=== PATIENT | female | born 1955 | race Hispanic/Latino ===

== ENCOUNTER → 2023-11-12 | Outpatient (CLI) | payer OTHER ==
[~2023-11-12] MED LIST: IOHEXOL-350 75 ML VIAL IV ONE
== END | disposition home or self-care (01) ==
LOC: RAH 09:27
PROVIDERS: ATTEND Student in an Organized Health Care Education/Training Program
DX: I65.23 Occlusion and stenosis of bilateral carotid arteries (principal); I70.90 Unspecified atherosclerosis; M47.812 Spondylosis without myelopathy or radiculopathy, cervical region
CPT/HCPCS: 70498; Q9967

== ENCOUNTER → 2024-01-06 | Outpatient (CLI) | payer OTHER ==
[~2024-01-06] MED LIST changes: +IOHEXOL 350 MG/ML 100ML INFUS..BTL IV ONE; -IOHEXOL-350 75 ML VIAL IV ONE; +METOPROLOL TARTRATE 1 MG/ML 5ML VIAL IV ONE
== END | disposition home or self-care (01) ==
LOC: RAH 08:44
PROVIDERS: ATTEND Student in an Organized Health Care Education/Training Program
DX: R07.9 Chest pain, unspecified (principal)
CPT/HCPCS: 75574; J3490; Q9967

== ENCOUNTER → 2024-01-12 | Outpatient (CLI) | payer OTHER | END | disposition home or self-care (01) | LOC: RAH 09:10 | PROVIDERS: ATTEND Family Medicine | DX: Z12.31 Encounter for screening mammogram for malignant neoplasm of breast (principal) | CPT/HCPCS: 77067 ==

== ENCOUNTER → 2024-01-19 | Outpatient (CLI) | payer OTHER | END | disposition home or self-care (01) | LOC: SHCH 10:28 | PROVIDERS: ATTEND Student in an Organized Health Care Education/Training Program | DX: I11.9 Hypertensive heart disease without heart failure (principal); R07.9 Chest pain, unspecified; E78.5 Hyperlipidemia, unspecified | CPT/HCPCS: 93306 ==

== ENCOUNTER → 2024-03-28 | Outpatient (CLI) | payer OTHER | END | disposition home or self-care (01) | LOC: SHCH 11:25 | PROVIDERS: ATTEND Student in an Organized Health Care Education/Training Program | DX: I65.23 Occlusion and stenosis of bilateral carotid arteries (principal) | CPT/HCPCS: 93880 ==

== ENCOUNTER 2024-10-12 10:00 | Inpatient (IN) | payer OTHER ==
[~2024-10-12] VITALS: Ht 154.9 cm; Wt 62.8 kg
[~2024-10-12 10:00] MED LIST changes: +CLOP75TA32 PO; +EMPA1TAB9 PO; +GABA-529 PO; -IOHEXOL 350 MG/ML 100ML INFUS..BTL IV ONE; +LOSA50TA64 PO; -METOPROLOL TARTRATE 1 MG/ML 5ML VIAL IV ONE
[2024-10-12 11:00] VITALS: BP 163/79; PULSE 76; RESP 17; TEMP 97.3
[2024-10-12 11:09] LABS: BASOPHILS # (AUTO) 0.03 K/uL (0.00-0.20); BASOPHILS % (AUTO) 0.5 % (0.0-5.0); EOSINOPHILS # (AUTO) 0.21 K/uL (0.00-0.70); EOSINOPHILS % (AUTO) 3.3 % (0.0-8.0); HEMATOCRIT 44.4 % (36-48); IMMATURE GRANULOCYTE ABSOLUTE 0.01 K/uL (0-1); LYMPHOCYTES # (AUTO) 2.3 K/uL (1.0-4.8); LYMPHOCYTES % (AUTO) 35.4 % (21.0-51.0); MEAN CORPUSCULAR HEMOGLOBIN 26.9 pg (27.0-33.0); MEAN CORPUSCULAR HGB CONC 32.2 g/dL (32.0-36.0); MEAN CORPUSCULAR VOLUME 83.6 fL (79-99); MONOCYTES # (AUTO) 0.5 K/uL (0.1-1.0); NEUTROPHILS # (AUTO) 3.4 K/uL (1.8-7.7); NEUTROPHILS % (AUTO) 52.6 % (40.0-77.0); PLATELET COUNT (AUTO) 232 K/uL (130-400); RED BLOOD CELL COUNT(AUTO) 5.31 MIL/uL (4.00-5.50); RED CELL DISTRIBUTION WIDTH 15.4 % (11.0-15.5); WHITE BLOOD COUNT (AUTO) 6.4 K/uL (4.8-10.8)
[2024-10-12 11:16] LABS: CREATININE 0.7 mg/dL (0.5-1.0); POTASSIUM 3.6 mmol/L (3.5-5.1)
--- NOTE | 2024-10-12 11:27 | EKG ---
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
[2024-10-12 11:37] LABS: APPEARANCE,URINE CLEAR (CLEAR); BILIRUBIN,URINE NEGATIVE (NEGATIVE); COLOR,URINE LIGHT-YELLOW (YELLOW); GLUCOSE, URINE (UA) >=1000 mg/dL (NEGATIVE); KETONES,URINE NEGATIVE (NEGATIVE); LEUKOCYTE ESTERASE ,URINE NEGATIVE Leu/uL (NEGATIVE); NITRATE,URINE NEGATIVE (NEGATIVE); OCCULT BLOOD,URINE NEGATIVE (NEGATIVE); PROTEIN,URINE NEGATIVE (NEGATIVE); UROBILINOGEN,URINE 0.2 mg/dL (0.2-1.0)
[2024-10-12 11:38] LABS: ADD UA MICROSCOPIC YES
[2024-10-12 11:39] LABS: MUCUS,URINE RARE LPF (None Seen); RBC,URINE 0-1 /HPF (0-1); WBC,URINE 0-1 /HPF (0-1)
[2024-10-12 11:40] LABS: INR 1.01 (0.85-1.15); PROTHROMBIN TIME 11.3 SEC (9.6-11.6)
[2024-10-12] MEDS ORDERED: ISOS5TAB5 PO (11:40)
[2024-10-12] MEDS ORDERED: AMLO-258 PO (11:40)
[2024-10-12] MEDS ORDERED: INSU3INS3 SQ (11:40)
[2024-10-12] MEDS ORDERED: ATOR40TA71 PO (11:40)
[2024-10-12 11:41] LABS: PARTIAL THROMBOPLASTIN TIME 25.4 SEC (26.3-35.5)
--- NOTE | 2024-10-12 12:21 | HMCIMG ---
CHEST 1VW REASON: PRE OP COMPARISON: 06/28/2024 FINDINGS: Single view of the chest was obtained. Lungs are clear. Heart size is normal. There is no pulmonary vascular congestion. Mediastinum and bony thorax appear unremarkable. There has been a previous median sternotomy. IMPRESSION: 1. No acute finding, no change.
--- NOTE | 2024-10-12 15:36 | NUR ---
RE: LABS REPORTED BMP RESULTS TO BEBA AG NP. RECEIVED ORDERS TO REPEAT BMP IN AM AND INSTRUCT PATIENT TO HYDRATE TONIGHT (BEFORE MIDNIGHT). CALLED PATIENT AND INSTRUCTED HER TO DRINK PLENTY OF FLUIDS, PATIENT VERBALIZED UNDERSTANDING.
[2024-10-13] VITALS (59 sets, daily range): BP systolic 90–175; BP diastolic 37–89; PULSE 49–76; RESP 11–36; TEMP 96.9–99.5; O2SAT 93–100
[2024-10-13 06:12] LABS: CREATININE 0.7 mg/dL (0.5-1.0); POTASSIUM 3.4 mmol/L (3.5-5.1)
[2024-10-13] MEDS: 0.9%NACL 1000ML 1,000 ML IV ONE (06:33)
[2024-10-13] MEDS ORDERED: ondanSETRON 4MG INJ ONE ×2 (06:55→08:58)
[2024-10-13] MEDS ORDERED: phenylEPHRINE HCL 10 MG/ML 1ML VIAL IV ONE (06:56)
[2024-10-13] MEDS ORDERED: NEOSTIGMINE METHYLSULFATE 1MG/ML IV ONE (06:56)
[2024-10-13] MEDS ORDERED: GLYCOPYRROLATE 0.2 MG/ML 5 ML VIAL ONE (06:56)
[2024-10-13] MEDS ORDERED: rocuRONium bROMide 10MG/1ML 5ML VL ONE (06:56)
[2024-10-13] MEDS ORDERED: MIDAZOLAM HCL 1 MG/ML 2ML VIAL ONE (06:56)
[2024-10-13] MEDS ORDERED: proPOFol 10 MG/ML 20ML VIAL IV ONE (06:56)
[2024-10-13] MEDS ORDERED: FENTanyl CITRate PF 50 MCG/1 ML 2ML VIAL ONE (06:57)
[2024-10-13] MEDS ORDERED: IOHEXOL 350 MG/ML 100ML INFUS..BTL IV ONE (07:06)
[2024-10-13] MEDS ORDERED: HEParin 10,000 UNIT/10ML (1,000 UNIT/ML) VIAL ONE (07:06)
[2024-10-13] MEDS ORDERED: LIDOCAINE HCL 400MG/20ML VIAL ONE (07:06)
[2024-10-13] MEDS ORDERED: SODIUM BICARB 50MEQ 50ML VIAL 50 ML ONE (07:06)
[2024-10-13] MEDS ORDERED: HEParin-NS 1,000 UNIT/500 ML 1,000 ML IV ONE (07:07)
[2024-10-13] MEDS ORDERED: ceFAZolin SODIUM 1 GM VIAL ONE (07:08)
[2024-10-13] MEDS ORDERED: NITROGLYCERIN 50MG VIAL ONE (07:08)
[2024-10-13] MEDS ORDERED: ATROPINE 1MG SYG IVP ONE (08:41)
[2024-10-13] MEDS ORDERED: ondanSETRON 4MG INJ IV PRN (09:00)
[2024-10-13] MEDS ORDERED: NITROGLYCERIN 50MG/D5W 250ML 250 BOT IV PRN (09:00)
[2024-10-13] MEDS ORDERED: TEMAZepam 30 MG CAP PO PRN (09:00)
[2024-10-13] MEDS ORDERED: 0.9%NACL 1000ML 1,000 ML IV SCH (09:00)
[2024-10-13] MEDS ORDERED: isoSORbide DInitRATE 10MG TAB PO PRN (09:30)
--- NOTE | 2024-10-13 09:31 | CCATH ---
PROCEDURES: 1. Selective left carotid artery angiography. 2. Left internal carotid artery stent placement via a left TCAR with concomitant balloon angioplasty. 3. Right common femoral vein access and sheath placement. 4. Left common carotid artery exposure and repair to be dictated separately by Dr. Benedict Cross. INDICATIONS: Severe left carotid artery stenosis. COMPLICATIONS: None. ESTIMATED BLOOD LOSS: Less than 20 mL. CONTRAST: Approximately 35 mL. PRINT LINE SUPERVISOR: Joelle Gary II, MD/Benedict Cross MD ANESTHESIA: General anesthesia with endotracheal intubation. DESCRIPTION OF PROCEDURE: The patient was taken to the cardiac catheterization lab after appropriate operative consents were signed. She was prepped and draped in the usual fashion. After general anesthesia was induced, Dr. Cross was kind enough to proceed with left common carotid artery exposure and access as per his management. He will be dictating that part of the procedure separately. At this point, Dr. Gary took over the procedure. The right common femoral vein was accessed utilizing ultrasound guidance. An 8-Pashto sheath was advanced in retrograde fashion by the modified Seldinger technique. At this point, the right common carotid artery was accessed and angiography was performed in multiple views, identifying a severe stenotic lesion rated at 80%-90% in the proximal left internal carotid artery with a 50% lesion in the left external carotid artery. At this point, the TCAR [employer] sheath was advanced under fluoroscopic guidance with a wire access. Flow reversal was started and the sheath was sutured. After flow reversal was started, the common carotid artery was clamped proximal to the access site. At this point, after full heparinization, a 0.014 wire was advanced, placed in the distal internal carotid artery. We proceeded with placement of an [address] x [address] [employer] stent self-expanding which was deployed in the area of stenosis in internal carotid artery and the common carotid artery. This was postdilated with a 5 mm balloon to 14 atmospheres. Final angiographic results were excellent with no significant stenosis and with patent flow in the internal and external carotid arteries and the intracerebral circulation was normal. At this point, the repair was performed by Dr. Cross of the left common carotid artery. The right common femoral vein access was closed utilizing a Vascade with good hemostasis. The patient tolerated the procedure well and left the cardiac catheterization lab in stable condition. FINAL IMPRESSION: Successful left carotid artery TCAR with an [address] [employer] self-expanding stent, postdilated with a 5 mm balloon to 14 atmospheres with good angiographic results. PLAN: Continue medical management. TID: [id number] RECEIPT: [id number]
[2024-10-13] MEDS: NOREPINEPHRIN 4MG/NS 250ML 250 ML IV PRN (09:46)
--- NOTE | 2024-10-13 10:20 | HP ---
[facility] HISTORY & PHYSICAL Date Patient Seen: Oct 13, 2024 Time of Visit: 10:19 Supervising Physician: Marek Henley MD Primary Care Physician: Dora Boggs MD Outpatient Specialists: Dr Calderon Inpatient Consults: Dr Calderon PROBLEM LIST: Severe left internal carotid stenosis S/P TCAR Hypotension post TCAR in need of Levophed Hyperglycemia in the presence of Type 2 diabetes mellitus, POA Hypernatremia, POA, resolved Glucosuria Essential hypertension Hyperlipidemia Severe CAD status post CABG x3 on 06/23/24 History of right endarterectomy HPI: This is a 69-year-old female with history of type 2 diabetes mellitus, hypertension, hyperlipidemia, severe CAD status post CABG on 06/23/24, previous right carotid endarterectomy, and severe left internal carotid stenosis who presented to [facility] for elective left transcarotid artery revascularization. Patient was seen and evaluated in room 210 in the ICU post left TCAR. Dressing clean dry and intact to left side. No audible stridor or wheezes noted to upper airway. No swelling or hematoma noted. On non-rebreather mask post procedure saturating 100%. Lying flat on hospital bed. She is awake alert and oriented x3 in no apparent distress. Per Cardiology recommendations of blood pressure parameters is systolic blood pressure of 140 -160 mm Hg. Per RN Levophed low- dose has been started in order to meet parameter goals. CBC unremarkable, chemistry with potassium of 3.4 creatinine 0.7 GFR of 93 glucose of 126 mg/dL. Potassium covered per protocol. Chest x-ray with no acut e findings noted. We will continue follow cardiology recommendations. PAST MEDICAL HX: Type 2 diabetes mellitus Hypertension Hyperlipidemia Severe CAD Severe left internal carotid stenosis PAST SURGICAL HX: CABG x3 on 06/23/24 Severe left internal carotid stenosis History of right carotid endarterectomy Myomas section SOCIAL HISTORY: No tobacco, ETOH, or illicit drug use Coded Allergies: No Known Drug Allergies (Unverified Allergy, Unknown, 05/24/24) REVIEW OF SYSTEMS: Const: [no fever, fatigue, or weight changes] Eyes:[ no recent vision problems] ENT: [No congestion, ear pain, or sore throat]+ for postprocedure site pain to left side of neck. C/V: [no chest pain, palpitations or edema] Resp: [No cough, congestion, wheezing , or Shortness of breath] GI: [No abdominal pain, nausea, vomiting, constipation, or diarrhea] : [No incontinence of or dyuria] M/S: [No joint or pain swelling] Skin: [No rash] Neuro: [no headache, focal numbness, or weakness, dizziness or seizures] Psych: [no depression or anxiety] Heme: [no abnormal bruising or bleeding] Lymph: [no swollen glands] PHYSICAL EXAM: GENERAL: alert, weak, awake oriented x 3 HEENT: EOMI, Sclera non icteric, moist mucosa NECK: Supple, no JVD, trachea midline Dressing to left side of neck clean dry and intact. LUNGS: Clear breath sounds bilaterally. No wheezes HEART: Regular rate and rhythm. Normal S1 and S2, without murmurs ABD: Abdomen soft, nontender. Bowel sounds present EXT: No clubbing cyanosis or edema NEURO: Alert and oriented to person, follows commands Vital Signs (last 8hr) Date Time Temp Pulse Resp B/P (MAP) Pulse Ox O2 Delivery O2 Flow Rate FiO2 10/13/24 09:46 89/41 10/13/24 09:45 64 14 106/41 (62) 100 10/13/24 09:30 64 14 90/47 (61) 100 10/13/24 05:45 97.0 69 16 155/72 99 Room Air LABS: Hematology Labs: Test 10/12/24 10:46 Range/Units White Blood Count 6.4 4.8-10.8 K/uL Red Blood Count 5.31 4.00-5.50 MIL/uL Hemoglobin 14.3 12.0-16.0 g/dL Hematocrit 44.4 36-48 % Mean Corpuscular Volume 83.6 79-99 fL Mean Corpuscular Hemoglobin 26.9 L 27.0-33.0 pg Mean Corpuscular Hemoglobin Concent 32.2 32.0-36.0 g/dL Red Cell Distribution Width 15.4 11.0-15.5 % Platelet Count 232 130-400 K/uL Mean Platelet Volume 10.9 H 7.5-10.5 fL Immature Granulocyte % (Auto) 0.2 0-1 % Neutrophils (%) (Auto) 52.6 40.0-77.0 % Lymphocytes (%) (Auto) 35.4 21.0-51.0 % Monocytes (%) (Auto) 8.0 3.0-13.0 % Eosinophils (%) (Auto) 3.3 0.0-8.0 % Basophils (%) (Auto) 0.5 0.0-5.0 % Neutrophils # (Auto) 3.4 1.8-7.7 K/uL Lymphocytes # (Auto) 2.3 1.0-4.8 K/uL Monocytes # (Auto) 0.5 0.1-1.0 K/uL Eosinophils # (Auto) 0.21 0.00-0.70 K/uL Basophils # (Auto) 0.03 0.00-0.20 K/uL Absolute Immature Granulocyte (auto 0.01 0-1 K/uL Nucleated Red Blood Cells 0.0 0.0-0.19 % Chemistry Labs: Test 10/13/24 05:58 10/13/24 05:48 Range/Units Sodium Level 145 136-145 mmol/L Potassium Level 3.4 L 3.5-5.1 mmol/L Chloride Level 107 101-111 mmol/L Carbon Dioxide Level 29 21-32 mmol/L Blood Urea Nitrogen 17 7-18 mg/dL Creatinine 0.7 0.5-1.0 mg/dL Glomerular Filtration Rate Calc 93 >90 mL/min Random Glucose 126 H 70-105 mg/dL Total Calcium 8.7 8.5-10.1 mg/dL Whole Blood Glucose 129 H 70-110 MG/DL Coagulation Labs: Test 10/12/24 10:46 Range/Units Prothrombin Time 11.3 9.6-11.6 SEC Prothromb Time International Ratio 1.01 0.85-1.15 Activated Partial Thromboplast Time 25.4 L 26.3-35.5 SEC DIAGNOSTICS / RADIOLOGY RESULTS: IMAGING REPORT Signed PATIENT: ANUSHA BAIG MR#: [id number] : 1955 SEX: F AGE: 69 LOCATION: ORDER 1050 STATUS: PRE IN REPORT#: [id number] SERVICE 1031 REASON: PRE OP ORDERING PHYSICIAN: Dayday CALDERON II, MD PROCEDURE: CXR1VW - CHEST 1VW CHEST 1VW REASON: PRE OP COMPARISON: 06/28/2024 FINDINGS: Single view of the chest was obtained. Lungs are clear. Heart size is normal. There is no pulmonary vascular congestion. Mediastinum and bony thorax appear unremarkable. There has been a previous median sternotomy. IMPRESSION: 1. No acute finding, no change. DICTATED BY: YOKASTA CHAMPAGNE MD DATE: 10/12/24 1218 ELECTRONICALLY SIGNED BY: YOKASTA CHAMPAGNE MD DATE: 10/12/24 1221 PLAN Maintain systolic blood pressure between 140-160 per Cardiology recommendations Levophed as needed to maintain parameters. Follow cardiology recommendations Continuous Cardiac telemetry monitoring Monitor dressing to right side of the neck and neck for any hematoma or bruising Monitor respiratory status closely Monitor neurological status closely DVT and GI prophylaxis DAPT per Cardiology recommendation Statin Reconcile patient's home medication NEURO: Minimize central acting medications as possible. Fall Precautions. Well lighted room through the day and minimize interruptions through the night to prevent acute delirium. PULMONARY: Supplemental 02 as needed Titrate Fio2 to keep Spo2 > or = 90% DuoNebs and CPT as needed IS hourly while awake for pulmonary hygiene Out of bed to chair as tolerated VAP Bundle may wean from NRB once more awake from sedation post procedure CARDIOVASCULAR: Follow hemodynamics. Titrate vasopressor to keep MAP >65 or systolic blood pressure >95mmHg tele monitoring. VS per ICU protocol DRIPS: Levophed LINES: PIV GI & NUTRITION: Continue nutritional support Aspirations precautions Prokinetic agents and laxatives as needed KIDNEYS & ELECTROLYTES: Strict monitoring of intake and output Daily weights Avoid nephrotoxic agents Monitor electrolytes and replace as needed Goal urine output of 30mL/hr or 0.5mL/kg/hr Urine output: [ ] Fluid Balance: [ ] ENDOCRINE: Maintain blood glucose between 100-180 at all times. Insulin sliding scale for blood glucose management INFECTIOUS DISEASE: Trend temperature. Godinez-culture if febrile. Micro: [ ] Antibiotics: [ ] HEMATOLOGY & COAGULATION: Monitor H&H. Keep Hgb > 7 Transfuse 1 unit of PRBC for Hgb < 7 Transfuse 1 pack of platelets of platelets < 20, 000 Watch for any signs and symptoms of bleeding SKIN: Pressure ulcer prevention per facility protocol Rehab: PT/OT Prophylaxis: GI: Protonix DVT: SCD Code Status: Full Resuscitation Disposition: ICU Other: Total patient care time exceeds 35 minutes excluding all procedures. Case was discussed and seen with my supervising physician. The above plan was formulated and agreed upon. GENA MITCHELL [facility] Oct 13, 2024 10:20
[2024-10-13] MEDS ORDERED: LACTULOSE 20 GM/30 ML UDCUP PO PRN (10:30)
[2024-10-13] MEDS ORDERED: PoTASSium chloRIDE 20MEQ/100ML 100 ML IV PRN (10:30)
[2024-10-13] MEDS: ASPIRIN 81MG CHEW TAB PO SCH (10:32)
[2024-10-13] MEDS: acetaMINOPHEN 325 MG TAB PO PRN (10:33)
--- NOTE | 2024-10-13 10:42 | OP ---
DATE OF PROCEDURE: 10/13/2024 PREOPERATIVE DIAGNOSIS: Left carotid artery stenosis. POSTOPERATIVE DIAGNOSIS: Left carotid artery stenosis. PROCEDURE PERFORMED: Left transcarotid arterial revascularization. SURGEON: Benedict Cross MD. MILL TENDER WARM UP: Joelle Gary II MD DESCRIPTION OF PROCEDURE: Following anesthesia induction without any complication and progression of the operative field, a 3-cm incision was made over the left clavicle. The sternocleidomastoid muscle was retracted laterally. The carotid sheath was identified and opened with sharp scissors. The carotid artery and vein was identified. Proximal control was obtained. Subsequently, heparin dose was given to the patient and Dr. Gary took over the case and did a transcarotid revascularization portion. For more details, please refer to his separately dictated procedure report. After the procedure was concluded successfully and the stent was deployed, we then took over the case again and removed the sheath and repaired the common carotid artery with a 6-0 Prolene suture. At the end, there was good hemostasis. We closed the wound in layers with 2-0 Vicryl and 4-0 Monocryl suture. I was present throughout the entire operation. The patient tolerated the operation well and transferred to the postanesthesia care unit in stable condition. TID: [id number] RECEIPT: [id number]
[2024-10-13] MEDS: hydroMORPHone 0.5 MG SYG (0.5MG/0.5ML) IVP PRN (11:46)
[2024-10-13] MEDS: ceFAZolin SODIUM 1 GM VIAL IVPB SCH (15:25)
[2024-10-13] MEDS: PoTASSium chl 10% ELIXIR 20MEQ 20 MEQ/15 ML UDCUP PO PRN (16:47)
[2024-10-13] MEDS: doCUSate SODIUM 100 MG CAP PO SCH (20:29)
[2024-10-13] MEDS: atorVAStatin 40 MG TABLET PO SCH (20:29)
[2024-10-13] MEDS: GABApentin 100 MG CAPSULE PO SCH (20:29)
[2024-10-13] MEDS: cloPIDOgrel 75MG TAB PO SCH (20:29)
[2024-10-13] MEDS: PANTOPrazole 40 MG/VIAL IVP SCH (20:32)
[2024-10-13] MEDS: METFORMIN HCL PO SCH (20:50)
[2024-10-13] MEDS: EMPAGLIFLOZIN PO SCH (20:50)
[2024-10-13] MEDS: LoSARTan 50 MG TABLET PO SCH (20:50)
[2024-10-13] MEDS: amLODIPine 5 MG TAB PO SCH (20:50)
[2024-10-13] MEDS: INSULIN GLARgine 100 UNITS/ML 10 ML VIAL SQ SCH (20:51)
[2024-10-14] VITALS (103 sets, daily range): BP systolic 79–194; BP diastolic 22–102; PULSE 47–83; RESP 9–34; TEMP 97.8–99.3; O2SAT 94–96
[2024-10-14 03:35] LABS: HEMATOCRIT 37.4 % (36-48); MEAN CORPUSCULAR HEMOGLOBIN 27.2 pg (27.0-33.0); MEAN CORPUSCULAR HGB CONC 32.9 g/dL (32.0-36.0); MEAN CORPUSCULAR VOLUME 82.6 fL (79-99); RED BLOOD CELL COUNT(AUTO) 4.53 MIL/uL (4.00-5.50); RED CELL DISTRIBUTION WIDTH 15.3 % (11.0-15.5); WHITE BLOOD COUNT (AUTO) 9.8 K/uL (4.8-10.8)
[2024-10-14 03:50] LABS: CREATININE 0.7 mg/dL (0.5-1.0); MAGNESIUM 1.7 mg/dL (1.80-2.40); PHOSPHORUS 3.4 mg/dL (2.5-4.9); POTASSIUM 3.3 mmol/L (3.5-5.1)
[2024-10-14] MEDS: PoTASSium chloRIDE 20MEQ ER 20 MEQ ERTAB PO PRN (05:21)
[2024-10-14] MEDS: MAGNESIUM 2GM PREMIX 50ML 50 ML IV PRN (05:22)
--- NOTE | 2024-10-14 09:00 | PN ---
This is a 69-year-old female with a history of coronary artery disease status post CABG x3 06/23/2024, history of right carotid endarterectomy, type 2 diabetes mellitus and hyperlipidemia. She was admitted 10/13/2024 for elective TCAR of the left carotid artery. She is currently in sinus rhythm with heart rates in the 60s. Most recent blood pressure is 158/65. White blood count 9.8, hemoglobin 12.3, hematocrit 37.4, platelets 219, creatinine 0.7, potassium 3.3, magnesium 1.70. She offers no new cardiac complaints this morning. On exam, she is in no acute distress, regular rate and rhythm, lungs are clear to auscultation bilaterally, no lower extremity edema is noted. There was no evidence of hematoma, ecchymosis or erythema noted to left carotid incision. Assessment: 1. Left internal carotid artery stenosis status post left TCAR 10/13/2024. 2. CAD status post CABG x3 06/23/2024. 3. History of right CEA. 4. Type 2 diabetes mellitus. 5. Hyperlipidemia. 6. Hypertension. Plan: 1. She is status post left TCAR 10/13/2024. She is currently on IV norepinephrine. Her most recent blood pressure is 158/65. We will wean norepinephrine. 2. Continue aspirin 81 mg once daily, clopidogrel 75 mg once daily and atorvastatin 40 mg once daily. 3. Continue amlodipine 10 mg once daily and losartan 50 mg once daily for management of blood pressure. 4. We will follow the patient. Vitals/Labs Vital Signs Date Time Temp Pulse Resp B/P (MAP) Pulse Ox O2 Delivery O2 Flow Rate FiO2 10/14/24 08:00 96 Room Air* 0 21 10/14/24 07:30 55 17 128/37 (67) 10/14/24 07:15 97.9 Laboratory Tests 10/14/24 03:19 MOISES MADRIGAL Oct 14, 2024 09:00
[2024-10-14] MEDS: miDODRine HCL 5 MG TABLET PO SCH (10:28)
--- NOTE | 2024-10-14 10:50 | PN ---
[facility] PROGRESS NOTE Date Patient Seen: Oct 14, 2024 Time of Visit: 10:50 Supervising Physician: Fred Ivory MD Primary Care Physician: Dora Boggs MD Outpatient Specialists: Dr Gary Inpatient Consults: Dr Gary PROBLEM LIST: Severe left internal carotid stenosis S/P TCAR Hypotension post TCAR in need of Levophed Hyperglycemia in the presence of Type 2 diabetes mellitus, POA Hypernatremia, POA, resolved Glucosuria Essential hypertension Hyperlipidemia Severe CAD status post CABG x3 on 06/23/24 History of right endarterectomy INTERVAL HISTORY: 10/14/24-patient is awake alert and oriented x3. Hemodynamically improving facility on Levophed at 0.02 micrograms/kilogram per minute. We will start midodrine 10 mg 3 times a day p.r.n. for systolic blood pressure less than 100. Wean off Levophed. Potassium was 3.3 covered per protocol magnesium is 1.7 covered per protocol. Glucose 105 mg mg/dL. She denies any chest pain, palpitations or shortness for breath. She denies any headache dizziness or focal weakness. No major overnight events reported per RN. No stridor auscultated on upper airway. Bilateral lungs sound clear. We will continue to follow here in the ICU and follow with the Cardiology recommendation. REVIEW OF SYSTEMS: Const: [no fever, fatigue, or weight changes] Eyes:[ no recent vision problems] ENT: [No congestion, ear pain, or sore throat] C/V: [no chest pain, palpitations or edema] Resp: [No cough, congestion, wheezing , or Shortness of breath] GI: [No abdominal pain, nausea, vomiting, constipation, or diarrhea] : [No incontinence of or dyuria] M/S: [No joint or pain swelling] Skin: [No rash] Neuro: [no headache, focal numbness, or weakness, dizziness or seizures] Psych: [no depression or anxiety] Heme: [no abnormal bruising or bleeding] Lymph: [no swollen glands] PHYSICAL EXAM: GENERAL: alert, weak, awake oriented x 3 HEENT: EOMI, Sclera non icteric, moist mucosa NECK: Supple, no JVD, trachea midline Dressing to left side of neck clean dry and intact. No hematoma no stridor auscultated LUNGS: Clear breath sounds bilaterally. No wheezes HEART: Regular rate and rhythm. Normal S1 and S2, without murmurs ABD: Abdomen soft, nontender. Bowel sounds present EXT: No clubbing cyanosis or edema NEURO: Alert and oriented to person, follows commands Vital Signs (last 8hr) Date Time Temp Pulse Resp B/P (MAP) Pulse Ox O2 Delivery O2 Flow Rate FiO2 10/14/24 09:16 74 21 154/61 (92) 93 142/45 (77) 10/14/24 09:15 76 22 144/44 (77) 90 10/14/24 09:00 74 22 132/40 (70) 91 10/14/24 08:46 79 22 124/68 (86) 92 122/40 (67) 10/14/24 08:45 78 23 124/40 (68) 91 10/14/24 08:30 78 23 128/51 (76) 92 10/14/24 08:18 70 21 98/45 (62) 94 104/47 (66) 10/14/24 08:15 78 21 114/49 (70) 93 10/14/24 08:00 96 Room Air* 0 21 10/14/24 08:00 97.9 70 18 111/51 (71) 94 10/14/24 07:46 72 20 158/65 (96) 92 143/46 (78) 10/14/24 07:45 72 20 149/48 (81) 95 10/14/24 07:30 55 17 128/37 (67) 95 10/14/24 07:16 61 21 143/47 (79) 93 132/37 (68) 10/14/24 07:15 97.9 69 20 150/46 (80) 93 10/14/24 07:00 59 20 120/38 (65) 92 85/22 (43) 10/14/24 06:45 59 14 97/23 (47) 94 10/14/24 06:31 137/62 10/14/24 06:30 68 20 167/69 (101) 94 159/46 (83) 10/14/24 06:15 53 16 134/33 (66) 95 10/14/24 06:00 48 20 137/62 (87) 95 139/41 (73) 10/14/24 05:45 59 19 116/40 (65) 95 10/14/24 05:30 59 26 106/57 (73) 92 97/32 (53) 10/14/24 05:17 58 18 107/41 (63) 93 79/31 (47) 10/14/24 05:15 63 19 86/32 (50) 92 10/14/24 05:00 99.3 56 21 138/50 (79) 91 146/46 (79) 10/14/24 04:45 52 20 130/41 (70) 95 10/14/24 04:30 53 19 148/49 (82) 93 144/46 (78) 10/14/24 04:15 53 19 142/45 (77) 93 10/14/24 04:00 53 20 134/49 (77) 93 131/42 (71) 10/14/24 03:45 53 20 134/42 (72) 94 10/14/24 03:30 52 13 147/46 (79) 95 129/41 (70) 10/14/24 03:15 53 20 131/41 (71) 92 10/14/24 03:00 62 20 145/57 (86) 94 149/50 (83) 10/14/24 03:00 94 Room Air* 0 21 LABS: Hematology Labs: Test 10/14/24 03:19 Range/Units White Blood Count 9.8 4.8-10.8 K/uL Red Blood Count 4.53 4.00-5.50 MIL/uL Hemoglobin 12.3 12.0-16.0 g/dL Hematocrit 37.4 36-48 % Mean Corpuscular Volume 82.6 79-99 fL Mean Corpuscular Hemoglobin 27.2 27.0-33.0 pg Mean Corpuscular Hemoglobin Concent 32.9 32.0-36.0 g/dL Red Cell Distribution Width 15.3 11.0-15.5 % Platelet Count 219 130-400 K/uL Mean Platelet Volume 10.8 H 7.5-10.5 fL Nucleated Red Blood Cells 0.0 0.0-0.19 % Chemistry Labs: Test 10/14/24 06:28 10/14/24 03:19 Range/Units Whole Blood Glucose 105 70-110 MG/DL Sodium Level 144 136-145 mmol/L Potassium Level 3.3 L 3.5-5.1 mmol/L Chloride Level 110 101-111 mmol/L Carbon Dioxide Level 23 21-32 mmol/L Blood Urea Nitrogen 15 7-18 mg/dL Creatinine 0.7 0.5-1.0 mg/dL Glomerular Filtration Rate Calc 93 >90 mL/min Random Glucose 122 H 70-105 mg/dL Total Calcium 8.0 L 8.5-10.1 mg/dL Phosphorus Level 3.4 2.5-4.9 mg/dL Magnesium Level 1.70 L 1.80-2.40 mg/dL DIAGNOSTICS / RADIOLOGY RESULTS: [ ] PLAN Wean levophed midodrine prn for sbp < 100 Follow cardiology recommendations Continuous Cardiac telemetry monitoring Monitor dressing to right side of the neck and neck for any hematoma or bruising Monitor respiratory status closely Monitor neurological status closely DVT and GI prophylaxis DAPT per Cardiology recommendation Statin NEURO: Minimize central acting medications as possible. Maintain fall precautions, adequate lighting during the day PULMONARY: Supplemental 02 as needed. Maintain aspiration precautions at all times CARDIOVASCULAR: Follow hemodynamics. Vital signs per facility protocol GI & NUTRITION: Continue with nutritional support. Continue stool softeners and laxatives as needed. KIDNEYS & ELECTROLYTES: Strict monitoring of intake, output and overall fluid balance. Avoid nephrotoxic medications to the extent possible. Medications to be dosed according to renal function. Monitor electrolytes and replace as needed ENDOCRINE: Maintain blood glucose between 100-180 at all times. Hypoglycemia protocol in place INFECTIOUS DISEASE: Trend temperature, WBC and procalcitonin level Follow cultures, deescalate antibiotics as soon as possible. Panculture if new onset fever ONCOLOGY/HEMATOLOGY/COAGULATION: Monitor for s/s of bleeding Monitor hemoglobin, coagulation studies as needed SKIN: Pressure ulcer prevention per facility protocol Specialty mattress ORTHO/REHAB: Continue PT/OT Prophylaxis: Continue GI and DVT prophylaxis Code Status: Full Resuscitation Disposition: TBD Other: Total patient care time exceeds 35 minutes excluding all procedures. GENA MITCHELL Oct 14, 2024 10:50
--- NOTE | 2024-10-14 12:30 | NUR ---
NURSING NOTES PT IS POST TCAR X 24HRS, OK TO WEAN VASOPRESSOR PER GENA LEAD CLINICAL RESEARCH COORDINATOR, PT STARTED ON MIDODRINE 10MG TID, PT DENIES PAIN.
--- NOTE | 2024-10-14 17:20 | NUR ---
INITIAL/DCP HOME Met w pt this afternoon to discuss dcp. Pt admitted for elective TCAR. EC is dtr Ashley Perry [phone]. PCP [address] Flakita John. Preferred pharmacy is [facility] in [place]. Prior to admission pt was living at home w her spouse. She is normally independent w ambulation and ADLs. She owns a cane, rollator, nebulizer and sh chair. Discharge goal is to return home. Addendum: 10/14/24 at 1724 by LATOSHA CARRILLO CM Amended: Links added.
[2024-10-14] MEDS ORDERED: SODIUM BICARB 50MEQ 50ML VIAL IV ONE (23:45)
[2024-10-15] VITALS (11 sets, daily range): BP systolic 95–148; BP diastolic 32–59; PULSE 50–64; RESP 18–26; TEMP 98.5; O2SAT 92–97
[2024-10-15 05:10] LABS: BASOPHILS # (AUTO) 0.02 K/uL (0.00-0.20); BASOPHILS % (AUTO) 0.3 % (0.0-5.0); EOSINOPHILS # (AUTO) 0.18 K/uL (0.00-0.70); EOSINOPHILS % (AUTO) 2.5 % (0.0-8.0); HEMATOCRIT 34.9 % (36-48); IMMATURE GRANULOCYTE ABSOLUTE 0.01 K/uL (0-1); LYMPHOCYTES # (AUTO) 2.3 K/uL (1.0-4.8); LYMPHOCYTES % (AUTO) 31.9 % (21.0-51.0); MEAN CORPUSCULAR HEMOGLOBIN 27.2 pg (27.0-33.0); MEAN CORPUSCULAR HGB CONC 33.5 g/dL (32.0-36.0); MEAN CORPUSCULAR VOLUME 81.2 fL (79-99); MONOCYTES # (AUTO) 0.7 K/uL (0.1-1.0); MONOCYTES % (AUTO) 10.1 % (3.0-13.0); NEUTROPHILS % (AUTO) 55.1 % (40.0-77.0); PLATELET COUNT (AUTO) 181 K/uL (130-400); RED CELL DISTRIBUTION WIDTH 15.7 % (11.0-15.5); WHITE BLOOD COUNT (AUTO) 7.3 K/uL (4.8-10.8)
[2024-10-15 05:30] LABS: ALBUMIN 2.5 g/dL (3.5-5.0); BILIRUBIN,TOTAL 0.5 mg/dL (0.2-1.0); CREATININE 0.7 mg/dL (0.5-1.0); MAGNESIUM 2.1 mg/dL (1.80-2.40); POTASSIUM 3.7 mmol/L (3.5-5.1); TOTAL PROTEIN, SERUM 6.1 g/dL (6.0-8.3)
--- NOTE | 2024-10-15 09:45 | PN ---
[facility] PROGRESS NOTE Date Patient Seen: Oct 15, 2024 Time of Visit: 09:44 Supervising Physician: [ ] Primary Care Physician: Dora Boggs MD Outpatient Specialists: Dr Gary Inpatient Consults: Dr Gary PROBLEM LIST: Severe left internal carotid stenosis S/P TCAR Hypotension post TCAR in need of Levophed Hyperglycemia in the presence of Type 2 diabetes mellitus, POA Hypernatremia, POA, resolved Glucosuria Essential hypertension Hyperlipidemia Severe CAD status post CABG x3 on 06/23/24 History of right endarterectomy INTERVAL HISTORY: 10/14/24-patient is awake alert and oriented x3. Hemodynamically improving facility on Levophed at 0.02 micrograms/kilogram per minute. We will start midodrine 10 mg 3 times a day p.r.n. for systolic blood pressure less than 100. Wean off Levophed. Potassium was 3.3 covered per protocol magnesium is 1.7 c overed per protocol. Glucose 105 mg mg/dL. She denies any chest pain, palpitations or shortness for breath. She denies any headache dizziness or focal weakness. No major overnight events reported per RN. No stridor auscultated on upper airway. Bilateral lungs sound clear. We will continue to follow here in the ICU and follow with the Cardiology recommendation. REVIEW OF SYSTEMS: Const: [no fever, fatigue, or weight changes] Eyes:[ no recent vision problems] ENT: [No congestion, ear pain, or sore throat] C/V: [no chest pain, palpitations or edema] Resp: [No cough, congestion, wheezing , or Shortness of breath] GI: [No abdominal pain, nausea, vomiting, constipation, or diarrhea] : [No incontinence of or dyuria] M/S: [No joint or pain swelling] Skin: [No rash] Neuro: [no headache, focal numbness, or weakness, dizziness or seizures] Psych: [no depression or anxiety] Heme: [no abnormal bruising or bleeding] Lymph: [no swollen glands] PHYSICAL EXAM: GENERAL: alert, weak, awake oriented x 3 HEENT: EOMI, Sclera non icteric, moist mucosa NECK: Supple, no JVD, trachea midline Dressing to left side of neck clean dry and intact. No hematoma no stridor auscultated LUNGS: Clear breath sounds bilaterally. No wheezes HEART: Regular rate and rhythm. Normal S1 and S2, without murmurs ABD: Abdomen soft, nontender. Bowel sounds present EXT: No clubbing cyanosis or edema NEURO: Alert and oriented to person, follows commands Vital Signs (last 8hr) Date Time Temp Pulse Resp B/P (MAP) Pulse Ox O2 Delivery O2 Flow Rate FiO2 10/15/24 09:00 64 26 111/52 (71) 93 95/34 (54) 10/15/24 08:00 92 Room Air* 0 21 10/15/24 08:00 98.4 57 25 118/59 (78) 95 117/41 (66) 10/15/24 07:00 53 22 122/46 (71) 92 108/33 (58) 10/15/24 06:00 60 18 126/57 (80) 91 116/37 (63) 10/15/24 05:00 57 18 111/46 (67) 93 106/34 (58) 10/15/24 04:00 54 23 111/39 (63) 90 105/34 (57) 10/15/24 04:00 96 Room Air* 0 21 10/15/24 03:00 56 23 122/40 (67) 95 105/35 (58) 10/15/24 02:00 50 23 126/40 (68) 92 108/32 (57) LABS: Hematology Labs: Test 10/15/24 04:49 Range/Units White Blood Count 7.3 4.8-10.8 K/uL Red Blood Count 4.30 4.00-5.50 MIL/uL Hemoglobin 11.7 L 12.0-16.0 g/dL Hematocrit 34.9 L 36-48 % Mean Corpuscular Volume 81.2 79-99 fL Mean Corpuscular Hemoglobin 27.2 27.0-33.0 pg Mean Corpuscular Hemoglobin Concent 33.5 32.0-36.0 g/dL Red Cell Distribution Width 15.7 H 11.0-15.5 % Platelet Count 181 130-400 K/uL Mean Platelet Volume 11.2 H 7.5-10.5 fL Immature Granulocyte % (Auto) 0.1 0-1 % Neutrophils (%) (Auto) 55.1 40.0-77.0 % Lymphocytes (%) (Auto) 31.9 21.0-51.0 % Monocytes (%) (Auto) 10.1 3.0-13.0 % Eosinophils (%) (Auto) 2.5 0.0-8.0 % Basophils (%) (Auto) 0.3 0.0-5.0 % Neutrophils # (Auto) 4.0 1.8-7.7 K/uL Lymphocytes # (Auto) 2.3 1.0-4.8 K/uL Monocytes # (Auto) 0.7 0.1-1.0 K/uL Eosinophils # (Auto) 0.18 0.00-0.70 K/uL Basophils # (Auto) 0.02 0.00-0.20 K/uL Absolute Immature Granulocyte (auto 0.01 0-1 K/uL Nucleated Red Blood Cells 0.0 0.0-0.19 % Chemistry Labs: Test 10/15/24 04:49 10/14/24 20:46 10/14/24 03:19 Range/Units Sodium Level 142 136-145 mmol/L Potassium Level 3.7 3.5-5.1 mmol/L Chloride Level 111 101-111 mmol/L Carbon Dioxide Level 26 21-32 mmol/L Blood Urea Nitrogen 19 H 7-18 mg/dL Creatinine 0.7 0.5-1.0 mg/dL Glomerular Filtration Rate Calc 93 >90 mL/min Random Glucose 142 H 70-105 mg/dL Total Calcium 8.1 L 8.5-10.1 mg/dL Magnesium Level 2.10 1.80-2.40 mg/dL Total Bilirubin 0.5 0.2-1.0 mg/dL Aspartate Amino Transf (AST/SGOT) 21 10-37 U/L Alanine Aminotransferase (ALT/SGPT) 20 12-78 U/L Alkaline Phosphatase 113 50-136 U/L Total Protein 6.1 6.0-8.3 g/dL Albumin 2.5 L 3.5-5.0 g/dL Whole Blood Glucose 159 #H 70-110 MG/DL Phosphorus Level 3.4 2.5-4.9 mg/dL DIAGNOSTICS / RADIOLOGY RESULTS: [ ] PLAN Maintain systolic blood pressure between 140-160 per Cardiology recommendations Levophed as needed to maintain parameters. Follow cardiology recommendations Continuous Cardiac telemetry monitoring Monitor dressing to right side of the neck and neck for any hematoma or bruising Monitor respiratory status closely Monitor neurological status closely DVT and GI prophylaxis DAPT per Cardiology recommendation Statin Reconcile patient's home medication NEURO: Minimize central acting medications as possible. Fall Precautions. Well lighted room through the day and minimize interruptions through the night to prevent acute delirium. PULMONARY: Supplemental 02 as needed Titrate Fio2 to keep Spo2 > or = 90% DuoNebs and CPT as needed IS hourly while awake for pulmonary hygiene Out of bed to chair as tolerated VAP Bundle may wean from NRB once more awake from sedation post procedure CARDIOVASCULAR: Follow hemodynamics. Titrate vasopressor to keep MAP >65 or systolic blood pressure >95mmHg tele monitoring. VS per ICU protocol DRIPS: Levophed LINES: PIV GI & NUTRITION: Continue nutritional support Aspirations precautions Prokinetic agents and laxatives as needed KIDNEYS & ELECTROLYTES: Strict monitoring of intake and output Daily weights Avoid nephrotoxic agents Monitor electrolytes and replace as needed Goal urine output of 30mL/hr or 0.5mL/kg/hr Urine output: [ ] Fluid Balance: [ ] ENDOCRINE: Maintain blood glucose between 100-180 at all times. Insulin sliding scale for blood glucose management INFECTIOUS DISEASE: Trend temperature. Godinez-culture if febrile. Micro: [ ] Antibiotics: [ ] HEMATOLOGY & COAGULATION: Monitor H&H. Keep Hgb > 7 Transfuse 1 unit of PRBC for Hgb < 7 Transfuse 1 pack of platelets of platelets < 20, 000 Watch for any signs and symptoms of bleeding SKIN: Pressure ulcer prevention per facility protocol Rehab: PT/OT Prophylaxis: GI: Protonix DVT: SCD Code Status: Full Resuscitation Disposition: ICU Other: Total patient care time exceeds 35 minutes excluding all procedures. Case was discussed and seen with my supervising physician. The above plan was formulated and agreed upon. GENA MITCHELL Oct 15, 2024 09:44
--- NOTE | 2024-10-15 09:47 | PN ---
This is a 69-year-old female with a history of coronary artery disease status post CABG x3 06/23/2024, history of right carotid endarterectomy, type 2 diabetes mellitus and hyperlipidemia. She was admitted 10/13/2024 for elective TCAR of the left carotid artery. She is currently in sinus rhythm with heart rates in the 60s. Most recent blood pressure is 118/59. White blood count 7.3, hemoglobin 11.7, hematocrit 34.9, platelets 181, creatinine 0.7, potassium 3.7, magnesium 2.10. IV norepinephrine was discontinued yesterday. She offers no new cardiac complaints this morning. On exam, she is in no acute distress, regular rate and rhythm, lungs are clear to auscultation bilaterally, no lower extremity edema is noted. There was no evidence of hematoma, ecchymosis or erythema noted to left carotid incision. Assessment: 1. Left internal carotid artery stenosis status post left TCAR 10/13/2024. 2. CAD status post CABG x3 06/23/2024. 3. History of right CEA. 4. Type 2 diabetes mellitus. 5. Hyperlipidemia. 6. Hypertension. Plan: 1. She is status post left TCAR 10/13/2024. Blood pressure stable after discontinuation of norepinephrine. 2. Continue aspirin 81 mg once daily, clopidogrel 75 mg once daily and atorvastatin 40 mg once daily. 3. Continue amlodipine 10 mg once daily and losartan 50 mg once daily for management of blood pressure. 4. The patient is cleared to be discharged home from a cardiology standpoint. Follow-up with Dr. Gary in 1-2 weeks. Vitals/Labs Vital Signs Date Time Temp Pulse Resp B/P (MAP) Pulse Ox O2 Delivery O2 Flow Rate FiO2 10/15/24 09:00 64 26 111/52 (71) 93 95/34 (54) 10/15/24 08:00 Room Air* 0 21 10/15/24 08:00 98.4 Laboratory Tests 10/15/24 04:49 MOISES MADRIGAL Oct 15, 2024 09:47
--- NOTE | 2024-10-15 10:21 | NUR ---
ARTERIAL LINE REMOVED PER MD ORDER. INFORMED PATIENT OF REMOVAL PROCEDURE. PATIENT VERBALIZED UNDERSTANDING. REMOVED TEGADERM AND TAPE FROM SITE. CLEANED AREA WITH CHLORHEXIDINE WIPE. REMOVED CATHETER AND APPLIED MANUAL PRESSURE TO SITE FOR 3 MIN. NO SIGNS OF BLEEDING OR HEMATOMA NOTED. APPLIED PRESSURE DRESSING TO SITE. PATIENT TOLERATED REMOVAL WELL. WILL CONTINUE TO MONITOR SITE.
[2024-10-15] MEDS: miDODRine HCL 5 MG TABLET PO PRN (12:16)
[2024-10-15] MEDS ORDERED: ASPI-1005 PO (14:30)
--- NOTE | 2024-10-15 15:51 | NUR ---
PATIENT D/C HOME PER MD ORDER. PATIENT DISCHARGE INFORMATION GIVEN IN [facility] WHICH INCLUDED NEW MEDICATIONS AND [facility] PHONE NUMBER TO SET UP FOLLOW-UP APPOINTMENT. PATIENT VERBALIZED UNDERSTANDING AND KEPT FOLDER WITH DISCHARGE INFO. IV REMOVED X2. APPLIED MANUAL PRESSURE TO SITE FOR 2-3 MIN. NO SIGNS OF HEMATOMA OR BLEEDING NOTED. APPLIED PRESSURE DRESSING TO SITE AND EXPLAINED TO PATIENT SHE MAY REMOVE THEM WHEN SHE ARRIVES AT HOME. PATIENT VERBALIZED UNDERSTANDING. PATIENT TAKEN, VIA WHEELCHAIR, DOWN TO PRIVATE CAR TO BE DRIVEN HOME BY FAMILY. ALL BELONGINGS TAKEN WITH PATIENT AND FAMILY MEMBERS.
--- NOTE | 2024-10-15 19:02 | DS ---
[facility] DISCHARGE SUMMARY Date Patient Seen: Oct 15, 2024 Time of Visit: 16:00 Supervising Physician: Fred Ivory MD Primary Care Physician: Dora Boggs MD Outpatient Specialists: Dr Gary Inpatient Consults: Dr Gary PROBLEM LIST: Severe left internal carotid stenosis S/P TCAR 10/13/24 Hypotension post TCAR in need of Levophed, resolved Hyperglycemia in the presence of Type 2 diabetes mellitus, POA Hypernatremia, POA, resolved Glucosuria Essential hypertension Hyperlipidemia Severe CAD status post CABG x3 on 06/23/24 History of right endarterectomy HOSPITAL COURSE: HPI 10/13/24*This is a 69-year-old female with history of type 2 diabetes mellitus, hypertension, hyperlipidemia, severe CAD status post CABG on 06/23/24, previous right carotid endarterectomy, and severe left internal carotid stenosis who presented to [facility] for elective left transcarotid artery revascularization. Patient was seen and evaluated in room 210 in the ICU post left TCAR. Dressing clean dry and intact to left side. No audible stridor or wheezes noted to upper airway. No swelling or hematoma noted. On non-rebreather mask post procedure saturating 100%. Lying flat on hospital bed. She is awake alert and oriented x3 in no apparent distress. Per Cardiology recommendations of blood pressure parameters is systolic blood pressure of 140 -160 mm Hg. Per RN Levophed low- dose has been started in order to meet parameter goals. CBC unremarkable, chemistry with potassium of 3.4 creatinine 0.7 GFR of 93 glucose of 126 mg/dL. Potassium covered per protocol. Chest x-ray with no acute findings noted. We will continue follow cardiology recommendations. 10/14/24-patient is awake alert and oriented x3. Hemodynamically improving facility on Levophed at 0.02 micrograms/kilogram per minute. We will start midodrine 10 mg 3 times a day p.r.n. for systolic blood pressure less than 100. Wean off Levophed. Potassium was 3.3 covered per protocol magnesium is 1.7 covered per protocol. Glucose 105 mg mg/dL. She denies any chest pain, palpitations or shortness for breath. She denies any headache dizziness or focal weakness. No major overnight events reported per RN. No stridor auscultated on upper airway. Bilateral lungs sound clear. We will continue to follow here in the ICU and follow with the Cardiology recommendation. 10/15/24-patient is awake alert and oriented x3 in good spirits with dressing to left side of the neck clean dry and intact. No hematoma no stridor auscultated. Patient denies any headache, dizziness, weakness or paresthesia. She reports feeling well. She has been safely weaned off Levophed drip and is hemodynam ically stable. Laboratory unremarkable. pt safe for discharge. Instructions on medications given pt and daughter both verbalized understanding. ACTIVE PROBLEM LIST FOR THE HOSPITALIZATION: CHRONIC PROBLEMS: continue previous management per PCP unless otherwise indicated ADON FINDINGS/RECOMMENDATIONS: From Cardiology standpoint: 1. She is status post left TCAR 10/13/2024. Blood pressure stable after discontinuation of norepinephrine. 2. Continue aspirin 81 mg once daily, clopidogrel 75 mg once daily and atorvastatin 40 mg once daily. 3. Continue amlodipine 10 mg once daily and losartan 50 mg once daily for management of blood pressure. 4. The patient is cleared to be discharged home from a cardiology standpoint. Follow-up with Dr. Gary in 1-2 weeks. PROCEDURES: as mentioned above DISCHARGE MEDICATIONS: Pt hemodynamically stable and afebrile at time of discharge. PCP notified of patients admission, hospital course and discharge. New Medications: Aspirin (Aspirin 81MG Chew Tab) 81 Mg Tab.chew 81 MG PO DAILY, #30 TAB.CHEW 1 Refill Continued Medications: Amlodipine Besylate (Amlodipine Besylate) 10 Mg Tablet 10 MG PO HS for 30 Days, #30 TAB 0 Refills Atorvastatin Calcium (Atorvastatin Calcium) 40 Mg Tablet 40 MG PO HS, TAB Clopidogrel Bisulfate (Clopidogrel) 75 Mg Tablet 75 MG PO HS, TAB Empagliflozin/Metformin HCl (Synjardy 5-1,000 mg Tablet) 5 Mg-1,000 Mg Tablet 1 EACH PO HS, TAB Gabapentin (Gabapentin) 100 Mg Capsule 100 MG PO BID, CAP Insulin Glargine,Hum.rec.anlog (Lantus Solostar) 100 Unit/Ml (3 Ml) Insuln.pen 40 UNIT SQ HS, SYRINGE Isosorbide Dinitrate (Isosorbide Dinitrate) 5 Mg Tablet 5 MG PO AD PRN for INCREASED BLOOD PRESSURE, TAB Losartan Potassium (Losartan Potassium) 50 Mg Tablet 50 MG PO HS, TAB PHYSICAL EXAM: GENERAL: alert, weak, awake oriented x 3 HEENT: EOMI, Sclera non icteric, moist mucosa NECK: Supple, no JVD, trachea midline Dressing to left side of neck clean dry and intact. No hematoma no stridor auscultated LUNGS: Clear breath sounds bilaterally. No wheezes HEART: Regular rate and rhythm. Normal S1 and S2, without murmurs ABD: Abdomen soft, nontender. Bowel sounds present EXT: No clubbing cyanosis or edema NEURO: Alert and oriented to person, follows commands FOLLOW-UP: Follow-up with PCP in 2-3 days Follow-up with Dr. Gary in 1-2 weeks. RECOMMENDATIONS: See Discharge Instructions This case was seen and discussed with my supervising physician. More than 30 minutes spent on discharge process, including evaluation of the patient, discussion with nursing staff, medication reconciliation and follow-up appointments GENA MITCHELL Oct 15, 2024 19:02
--- NOTE | 2024-10-16 14:42 | HMCIMG ---
CHEST 1VW HISTORY: Post TCAR COMPARISON: None FINDINGS: A frontal projection of the chest was obtained. No acute pulmonary infiltrates is seen. Poststernotomy changes are seen. The heart is enlarged. Degenerative changes of the thoracolumbar spine are present. Prominent interstitial markings are seen. Degenerative changes are seen. IMPRESSION: 1. No acute pulmonary infiltrate is seen. Prominent interstitial markings.
== END 2024-10-15 15:30 | disposition home or self-care (01) | DRG 35 ==
LOC: DAHIP 10-13 05:33 → 2BH 10-13 09:22 → EDSTATUS 10-13 10:00
PROVIDERS: ADMIT Internal Medicine Critical Care Medicine; ATTEND Internal Medicine Critical Care Medicine
PROC: 037L3DZ Dilation of Left Internal Carotid Artery with Intraluminal Device, Percutaneous Approach (ICD-10-PCS; principal; 2024-10-13 08:00)
PROC: B3171ZZ Fluoroscopy of Left Internal Carotid Artery using Low Osmolar Contrast (ICD-10-PCS; 2024-10-13 08:00)
DX: I65.22 Occlusion and stenosis of left carotid artery (principal); E87.0 Hyperosmolality and hypernatremia; I25.10 Atherosclerotic heart disease of native coronary artery without angina pectoris; I10 Essential (primary) hypertension; E78.5 Hyperlipidemia, unspecified; R81 Glycosuria; I95.9 Hypotension, unspecified; E11.65 Type 2 diabetes mellitus with hyperglycemia; Z95.1 Presence of aortocoronary bypass graft; Z79.82 Long term (current) use of aspirin; Z79.899 Other long term (current) drug therapy
CPT/HCPCS: 36415; 37215; 71045; 80048; 80053; 81001; 82948; 83735; 84100; 85025; 85027; 85347; 85610; 85730; 86850; 86900; 86901; 86923; 93005; G0378; J0461; J0690; J1171; J1644; J2250; J2371; J2405; J2470; J2704; J2710; J3010; J3475; J3490; J7030; Q9967; A4215; A4216; A4221; A4222; A4223; A4351; A4600; A4649; A4663; A4930; C1713; C1760; C1769; C1876; C1884; C1894; Q9965

== ENCOUNTER → 2025-06-05 | Outpatient (CLI) | payer OTHER ==
[~2025-06-05] MED LIST changes: +AMLO-258 PO; +ASPI-1005 PO; +ATOR40TA71 PO; +INSU3INS3 SQ; +ISOS5TAB5 PO
--- NOTE | 2025-06-05 13:25 | HMCIMG ---
DOUBLE CONTRAST BARIUM ENEMA: CLINICAL HISTORY: Incomplete colonoscopy Finding: The signal worker helper film demonstrates non-specific gas pattern. There is no organomegaly or ectopic calculi. The osseous structures of the abdomen and pelvis appear to be normal. After placement of a rectal tube, double contrast enema was performed under fluoroscopy and overhead films were obtained. The study demonstrates there is no evidence of mass or polyp seen in the large bowel. There is no evidence of any reflux of barium in the terminal ileum. The appendix is not visualized. There is no evidence of a diverticulosis. IMPRESSION: NO MASS OR POLYPS SEEN IN THE DOUBLE CONTRAST BARIUM ENEMA.
== END | disposition home or self-care (01) ==
LOC: RAH 08:32
PROVIDERS: ATTEND Internal Medicine Gastroenterology
DX: D12.6 Benign neoplasm of colon, unspecified (principal)
CPT/HCPCS: 74270

== ENCOUNTER → 2025-06-22 | Outpatient (CLI) | payer OTHER ==
--- NOTE | 2025-06-22 12:54 | HMCIMG ---
US CAROTID DUPLEX REASON: Dizziness and giddiness TECHNIQUE: Exam was performed using spectral analysis and color flow imaging. FINDINGS: Color flow Doppler ultrasound shows normal-appearing bifurcations. There is no anatomic evidence of significant focal narrowing. Flow velocities and velocity ratios appear normal throughout. There is antegrade flow in both vertebral arteries. RIGHT CAROTID: CCA: 68 cm/sec ICA: 113 cm/sec Ratio: ICA/CCA: 1.7 ECA: 184 cm/sec Vertebral artery: 57 cm/sec with antegrade flow LEFT CAROTID: The left carotid artery has a stent extending from distal left common carotid artery 2 left internal carotid artery. CCA: 79 cm/sec ICA: 124 cm/sec Ratio: ICA/CCA: 1.6 ECA: 215 cm/sec Vertebral artery: 176 cm/sec with antegrade flow IMPRESSION: Normal bilateral carotid Doppler ultrasound. Left common carotid and left internal carotid artery has a vascular stent which is patent.
== END | disposition home or self-care (01) ==
LOC: RAH 10:00
PROVIDERS: ATTEND Internal Medicine
DX: R42 Dizziness and giddiness (principal); I25.10 Atherosclerotic heart disease of native coronary artery without angina pectoris
CPT/HCPCS: 93880